=== PATIENT | male | born 1945 | race Caucasian/White ===

== ENCOUNTER 2016-12-21 10:47 | Emergency (ER) | payer MEDICARE ==
[~2016-12-21 10:47] MED LIST: ALBUTEROL HFA6.7 GM INH; ASPIR 8181 MG PO; CARDIZEM CD120 MG PO; IPRATR-ALBUTEROL3 ML NEB; LEVAQUIN750 MG PO; SPIRIVA18 MCG INH
== END 2016-12-21 13:38 | disposition home or self-care (01) ==
LOC: ER 10:47
DX: J10.1 Influenza due to other identified influenza virus with other respiratory manifestations (principal); J44.9 Chronic obstructive pulmonary disease, unspecified; K21.9 Gastro-esophageal reflux disease without esophagitis; I10 Essential (primary) hypertension; Z95.1 Presence of aortocoronary bypass graft; Z99.81 Dependence on supplemental oxygen; Z79.82 Long term (current) use of aspirin; Z79.899 Other long term (current) drug therapy
CPT/HCPCS: 36415; 87502